=== PATIENT | male | born 1990 | race African-American/Black ===

== ENCOUNTER 2023-03-29 10:48 | Outpatient (CLI) | payer OTHER, BC, SELFPAY ==
--- NOTE | ~2023-03-29 | XR_ITS ---
EXAMINATION: XR hand LT min 3V DATE: 03/29/2023 11:18 INDICATION: Left hand deformity. TECHNIQUE: 3 views of left hand were obtained. COMPARISON: None. FINDINGS: There is hyperflexion of third-fifth metacarpophalangeal joints and flexion of some of the interphalangeal joints. No fracture. Joint spaces are normal. IMPRESSION: 1. No fracture. Reviewed, dictated and finalized at location A. IMPRESSION: 1. No fracture.
--- NOTE | ~2023-03-29 | XR_ITS ---
EXAMINATION: XR finger 4th LT min 2V DATE: 03/29/2023 11:17 INDICATION: Left hand fourth digit deformity. TECHNIQUE: 5 views of left hand fourth digit were obtained. COMPARISON: None. FINDINGS: There is hyperextension of fourth and fifth metacarpophalangeal joints and flexion of the f ourth and fifth interphalangeal joints. No fracture. Joint spaces are normal. IMPRESSION: 1. No fracture. Reviewed, dictated and finalized at location A. IMPRESSION: 1. No fracture.
== END 2023-03-29 10:49 | disposition home or self-care (01) ==
PROVIDERS: Visit Provider Plastic Surgery
DX: M79.642 Pain in left hand (principal)
CPT/HCPCS: 73130; 73140

== ENCOUNTER 2023-05-05 13:35 | Outpatient (CLI) | payer OTHER, SELFPAY ==
--- NOTE | ~2023-05-05 | MR_ITS ---
EXAMINATION: MR hand LT wo con DATE: 05/05/2023 14:30 INDICATION: Left ring finger extension tendon rupture. TECHNIQUE: Magnetic resonance imaging (MRI) of the left hand was performed without intravenous contra st. COMPARISON: Left hand radiographs 03/29/2023 FINDINGS: There is flexion of the fingers, greatest at the fourth digit. No fracture. The joint space s are normal. In the fourth digit, the central slip of extensor digitorum communis tendon demonstrate s thickening and increased signal intensity at its attachment on the base of the fourth middle phalan x, consistent with at least partial tear. There is mild tendinopathy involving the fourth digit flexo r tendons. There is mild tenosynovitis of the fourth digit flexor tendons. IMPRESSION: 1. At least partial tear of the central slip of extensor digitorum communis tendon at the base of the fourth middle phalanx. Reviewed, dictated and finalized at location A. IMPRESSION: 1. At least partial tear of the central slip of extensor digitorum communis ten don at the base of the fourth middle phalanx.
== END 2023-05-05 13:36 | disposition home or self-care (01) ==
PROVIDERS: Visit Provider Plastic Surgery
DX: S63.635D Sprain of interphalangeal joint of left ring finger, subsequent encounter (principal); X58.XXXD Exposure to other specified factors, subsequent encounter
CPT/HCPCS: 73218

== ENCOUNTER 2023-06-02 12:45 | Outpatient (RCR) | payer OTHER, SELFPAY ==
--- NOTE | 2023-04-07 08:56 | OTOPEVAL1 ---
Assessment and note entered by Joe Russo, ANSHU/Mathew, CHT Evaluation Information Assessment Status Evaluation Diagnosis Sprain of PIP joint of left ring finger Onset Oct 2022 Subjective Information Patient dislocated the PIP joint of his left ring finger ~6 months ago. He states he was splinted for 1 day, but after that no intervention due to being incarcerated. He presents today in a 95 degree flexion contracture at the PIP joint. He is right hand dominant. Reported Pain Level Pain Score 0: Self Report Additional Pain Score Comments No pain at rest. Pain increases to 6/10 with passive extension at the PIP joint. Assessment OT Clinical Summary Patient referred to outpatient hand therapy with left ring finger PIP flexion contracture sustained from a dislocation ~6 months ago. X-rays are negative for fracture. He has not had other imaging to evaluate the integrity of the extensor tendon. Today we were able to passively splint him to an 80 degree bend with a static, volar gutter splint on the PIP joint. Plan - static progressive splinting to achieve as much PIP extension as possible. Prognosis guarded due to severity of condition. Continued follow up indicated for splinting progression, modalities, manual therapy, and therapeutic exercise to facilitate optimal return of left hand use. Plan of Care Interventions Therapeutic Exercise,Manual Therapy,Therapeutic Activities,Hot Pack/Cold Pack,Check Out for Orthotic/Pr,Ultrasound,Paraffin OT Services Indicated Yes Treatment Frequency and 1x/week for 6 weeks Duration These treatments will address the objective and functional deficits as defined above. The patient will be advanced safely and appropriately in order for the patient to progress towards his/her prior level of function. Additional exercises will be introduced and as well as a comprehensive home exercise program upon discharge, if needed, ?to ensure carryover of functional gains achieved in the clinic. This treatment plan has been reviewed and agreement upon by the patient.
--- NOTE | 2023-04-07 08:56 | OPREHPOC ---
Outpatient Therapy Plan of Care This is a Multidisciplinary Plan of Care that may contain components documented by all disciplines (PT, OT, and ST.) OT Problem 1 OT Problem #1 Knowledge Deficit OT Goal 1 Goal 1. Patient to be independent with instructed materials. 2. Patient to adhere to splint wearing schedule. Target Visit 7 OT Problem 2 OT Problem #2 Impaired Range of Motion OT Goal 1 Goal Increase ROM of the left ring finger PIP: 1. Be able to passively extend the PIP joint to 45 degrees. Target Visit 7
--- NOTE | 2023-04-29 14:25 | OTOPPROGNS ---
Assessment and note entered by Joe Russo, ANSHU/Mathew, CHT Evaluation Information Assessment Status Progress Diagnosis Sprain of PIP joint of left ring finger Onset Oct 2022 Subjective Information Patient dislocated the PIP joint of his left ring finger 6 months ago. He states he was splinted for 1 day, but after that no intervention due to being incarcerated. He was referred to hand therapy and attended the initial session 3 weeks ago where a static immobilization splint was fabricated to extend the PIP joint. Initially he presented in a 95 degree flexion contracture that was painful to attempt to mobilize. The splint stretched him to 80 degrees. He presents today able to actively sustain the 80 degrees. The splint was reformed to progress him to 70 degrees. Unable to passively push past 70 degrees at this time. He is having less pain with mobilizations. Weekly follow up is limited due to patient being incarcerated. Assessment OT Clinical Summary Patient referred to outpatient hand therapy with left ring finger PIP flexion contracture sustained from a dislocation 6 months ago. We are doing static progressive splinting to the PIP joint. We have been able to progress the splint today from 80 degrees of flexion to 70 degrees of flexion. He is having less pain overall. Plan - to continue static progressive splinting to achieve as much PIP extension as possible. Prognosis guarded due to severity of condition. He is scheduled for an MRI to evaluate the integrity of the extensor tendon. Continued follow up indicated for splinting progression, modalities, manual therapy, and therapeutic exercise to facilitate optimal return of left hand use. Plan of Care Interventions Therapeutic Exercise,Manual Therapy,Therapeutic Activities,Hot Pack/Cold Pack,Check Out for Orthotic/Pr,Ultrasound,Paraffin OT Services Indicated Yes Treatment Frequency and Follow up in 3 weeks Duration These treatments will address the objective and functional deficits as defined above. The patient will be advanced safely and appropriately in order for the patient to progress towards his/her prior level of function. Additional exercises will be introduced and as well as a comprehensive home exercise program upon discharge, if needed, ?to ensure carryover of functional gains achieved in the clinic. This treatment plan has been reviewed and agreement upon by the patient.
--- NOTE | 2023-05-17 13:25 | OTOPPROG ---
Assessment and note entered by Joe Russo, ANSHU/Mathew, CHT OT Progress Update 05/17/23 Diagnosis Sprain of PIP joint of left ring finger Onset Oct 2022 Subjective Information Initially he presented in a 95 degree flexion contracture that was painful to attempt to mobilize. Today he presents still in an 80 degree flexion contracture. He is able to flex to 90 deg and extend to -80. Passive improved to -65 degrees. Reformed the splint to progress into further extension with his increased flexibility. The splint now holds him in a stretch at 65 degrees. Weekly follow up is limited due to patient being incarcerated. Assessment OT Clinical Summary Patient referred to outpatient hand therapy with left ring finger PIP flexion contracture sustained from a dislocation 6 months ago. We are doing static progressive splinting to the PIP joint. We have been able to progress the splint today from 70 degrees of flexion to 65 degrees of flexion. Unable to mobilize into extension past 65 degrees. He is having less pain overall. Plan - to continue static progressive splinting to achieve as much PIP extension as possible. Prognosis guarded due to severity of condition. Continued follow up indicated for splinting progression, modalities, manual therapy, and therapeutic exercise to facilitate optimal return of left hand use. Plan of Care Interventions Therapeutic Exercise,Manual Therapy,Therapeutic Activities,Hot Pack/Cold Pack,Check Out for Orthotic/Pr,Ultrasound,Paraffin OT Services Indicated Yes Treatment Frequency and Follow up in 3 weeks Duration These treatments will address the objective and functional deficits as defined above. The patient will be advanced safely and appropriately in order for the patient to progress towards his/her prior level of function. Additional exercises will be introduced and as well as a comprehensive home exercise program upon discharge, if needed, ?to ensure carryover of functional gains achieved in the clinic. This treatment plan has been reviewed and agreement upon by the patient.
--- NOTE | 2023-05-17 13:26 | OPREHPOC ---
Outpatient Therapy Plan of Care This is a Multidisciplinary Plan of Care that may contain components documented by all disciplines (PT, OT, and ST.) OT Problem 1 OT Problem #1 Knowledge Deficit OT Goal 1 Goal 1. Patient to be independent with instructed materials. 2. Patient to adhere to splint wearing schedule. ---OT POC UPDATE 04/29/23--- 1. Met 2. Met, continue as splinting is modified/ progressed ---OT POC UPDATE 05/17/23-- 1. Met 2. Met, continue as splinting is progressed Target Visit 7 OT Problem 2 OT Problem #2 Impaired Range of Motion OT Goal 1 Goal Increase ROM of the left ring finger PIP: 1. Be able to passively extend the PIP joint to 45 degrees. ---OT POC UPDATE 04/29/23--- 1. Progressing, continue ---OT POC UPDATE 05/17/23-- 1. Progressing, continue Target Visit 7
--- NOTE | 2023-06-02 13:14 | OTOPDC ---
Assessment and note entered by Joe Russo, ANSHU/Mathew, T Discharge Summary 06/02/23 Assessment Status Discharge Diagnosis Sprain of PIP joint of left ring finger Onset Oct 2022 Subjective Information Patient initially presented on 04/07/23 in a 95 degree flexion contracture that was painful to attempt to mobilize. Splinting has progressed to -65 degree flexion contracture passively. Actively he rests in 80-85 degrees of flexion. At this time he is reaching a progress plateau with progressive static splinting. He has no pain at rest and 6/10 pain with passive extension of the PIP joint. He has been compliant with splinting and passive extension stretching exercises. Assessment OT Clinical Summary Patient referred to outpatient hand therapy with left ring finger PIP flexion contracture sustained from a dislocation 8 months ago. Therapy is working on doing static progressive splinting to the PIP joint. At this point therapy is unable to mobilize into extension past 65 degrees. He is independent with his current splint that holds him in his maximal extension. Discharging from therapy due to progress plateau.
== END 2023-06-02 16:09 | disposition home or self-care (01) ==
LOC: ANHGOSHOT 12:45
PROVIDERS: Visit Provider Plastic Surgery
DX: S63.635D Sprain of interphalangeal joint of left ring finger, subsequent encounter (principal); M79.642 Pain in left hand
CPT/HCPCS: 97140; 97165; 97763; L3933